=== PATIENT | female | born 1985 | race American Indian/Alaskan Native ===

== ENCOUNTER 2020-07-19 09:36 | Day surgery (SDC) | payer OTHER ==
[~2020-07-19 09:36] MED LIST: LACTATED RINGERS 1,000 ML IV SCH; MIDAZOLAM 2 MG/2 ML INJ IV NR
[2020-07-19] MEDS ORDERED: ceFAZolin/Water 2 GM/20 ML 2 GM/20 ML SYRINGE IV NR (10:00)
[2020-07-19] MEDS ORDERED: fentaNYL 100 MCG/2 ML INJ IV PRN (10:25)
[2020-07-19] MEDS ORDERED: ONDANSETRON 4 MG/2 ML INJ IV PRN (10:25)
[2020-07-19] MEDS ORDERED: HYDROcodone/ACETAMINOPHEN 5-325 MG TAB PO PRN (10:25)
--- NOTE | 2020-07-19 10:25 | Anesthesia Consultation ---
Anesthesia Consult and Med Hx Date of service: 07/19/20 - Airway Anesthetic Teeth Evaluation: Good ROM Head & Neck: Adequate Mental/Hyoid Distance: Adequate Mallampati Class: Class II Intubation Access Assessment: Probably Good - Pulmonary Exam CTA: Yes - Cardiac Exam Cardiac Exam: RRR - Pre-Operative Health Status ASA Pre-Surgery Classification: ASA2 Proposed Anesthetic Plan: General - Pulmonary Hx Smoking: No Hx Respiratory Symptoms: No Hx Sleep Apnea: No (GILMA PRE SCREEN NEGATIVE) - Cardiovascular System Hx Hypertension: No - Central Nervous System CVA: No Hx Back Pain: Yes - Endocrine Hx Renal Disease: No Hx Liver Disease: No Hx Non-Insulin Dependent Diabetes: Yes ("pre-DM", no meds) - Other Systems Hx Obesity: Yes (BMI 34) - Additional Comments Anesthesia Medical History Comments: Hx PONV. COVID+ 03/2020, did not require hospitalization, symptoms completely resolved.
--- NOTE | 2020-07-19 10:25 | Anesthesia Day of Surgery ---
Anesthesia Day of Surgery - Day of Surgery Patient Examined: Yes Patient H&P Reviewed: Yes Patient is NPO: Yes
[2020-07-19] MEDS ORDERED: SCOPOLAMINE TRANSDERMAL PATCH 72 HR TD SCH (10:47)
[2020-07-19] MEDS ORDERED: LIDOCAINE MPF (2%) 20 MG/1 ML VIAL 5 ML ONE (10:52)
[2020-07-19] MEDS ORDERED: dexAMETHasone 20 MG/5 ML VIAL ONE (10:52)
[2020-07-19] MEDS ORDERED: propofoL 200 MG/20 ML VIAL IV ONE (10:52)
[2020-07-19] MEDS ORDERED: fentaNYL 100 MCG/2 ML INJ ONE (10:55)
[2020-07-19] MEDS ORDERED: SCOPOLAMINE TRANSDERMAL PATCH 72 HR TD NR (11:00)
[2020-07-19] MEDS ORDERED: WATER FOR IRRIG STERILE 2000 ML IR ONE (12:17)
[2020-07-19] MEDS ORDERED: IOHEXOL 300 MG/ML 50ML IV ONE (12:20)
--- NOTE | 2020-07-19 13:16 | Operative Report ---
PREOPERATIVE DIAGNOSES: Left upper ureteral stone, previous sepsis. POSTOPERATIVE DIAGNOSES: Left upper ureteral stone, previous sepsis. PROCEDURES: Cystoscopy, left retrograde, left ureteroscopy, laser of large upper ureteral stone, nephroscopy and reinsertion double-J stent with a string. SURGEON: Dr. Hull. ANESTHESIA: General. FINDINGS: This is a woman who presented to the hospital with severe sepsis. Stent was placed. She had severe pain. She now presents for second stage ureteroscopy. DESCRIPTION OF PROCEDURE: The patient was brought to the operating room and placed on the operating table. Following induction of anesthesia, placed in lithotomy position, prepped and draped in usual sterile fashion. Cystourethroscopy showed a normal bladder. Two wires were coiled in the kidney and ureteroscopy revealed a stone without difficulty, but it was in the upper ureter. A 200 fiber was used and the stone was broken into so many pieces. One fragment went into the kidney. We followed it and broken in the middle to lower pole reanna into multiple pieces. The patient tolerated the procedure well. A 7-Turkmen coiled in the kidney and bladder, we left the string, brought to recovery in stable condition. JOB# [id number] ARMANDO/GABE
--- NOTE | 2020-07-19 13:19 | Fluoroscopy Report ---
FLUOROSCOPY RETROGRADE UROGRAPHY HISTORY: Left ureteral stone FINDINGS: Fluoroscopy was provided by radiology during retrograde urography by the urologist. Only im ages on the left side are presented. Computer Information Systems Instructor film demonstrates a left ureteral stent in good position w ith a stone in the mid left ureter near the level of L4. Subsequent images demonstrate left ureterosc opy and removal of the ureteral stone. The left ureteral stent was replaced and appears in good posit ion on the final image. Please correlate with the procedural report as needed. IMPRESSION: Left ureteral stone removal. Left ureteral stent replacement. Fluoroscopy time: 66 seconds Fluoroscopic images: 6 Signer Name: Miguel Garza Jr, MD Signed: 07/19/2020 1:15 PM Workstation Name: [id number]
--- NOTE | 2020-07-19 13:25 | Post Operative Note ---
Date of procedure: 07/19/20 Pre-op diagnosis: left upper ureteral stone Post-op diagnosis: same Findings: as above Procedure: cysto ureteroscopy laser Anesthesia: GETA Surgeon: MEY CARPENTER Estimated blood loss: none Pathology: none Condition: stable Disposition: PACU
--- NOTE | 2020-07-19 13:26 | Discharge Summary ---
Short Stay Discharge Plan Activity: other (no straining ) Weight Bearing Status: Full Weight Bearing Diet: regular, low fat Special Instructions: other (inc fluids ) Durable Medical Equipment Needed Upon Discharge: other (j stent do not pull string ) Follow up with: [facility] MD RADHA [Primary Care Provider] - 7 Days MEY CARPENTER MD [Staff Physician] - 7 Days
--- NOTE | 2020-07-19 14:34 | Post Anesthesia Evaluation ---
- Post Anesthesia Evaluation Patient Participated: Yes Airway Patent: Yes Stable Respiratory Function: Yes Nausea/Vomiting: No Temp > 96.8F: Yes Pain Manageable: Yes Adequeate Hydration: Yes Anesthesia Complications: No
[2020-07-19 14:53] VITALS: BP 111/75
== END 2020-07-19 09:37 | disposition home or self-care (01) ==
LOC: OR 09:36
PROVIDERS: ATTEND Urology
DX: N20.1 Calculus of ureter (principal); A41.9 Sepsis, unspecified organism; G43.909 Migraine, unspecified, not intractable, without status migrainosus; E66.9 Obesity, unspecified; E11.9 Type 2 diabetes mellitus without complications; F32.9 Major depressive disorder, single episode, unspecified; F41.9 Anxiety disorder, unspecified; Z98.890 Other specified postprocedural states; Z68.34 Body mass index [BMI] 34.0-34.9, adult
CPT/HCPCS: 52356; 74420; 81025; 82962; A4217; C1726; C1758; C1769; C2617; J1100; J2250; J2405; J2704; J3010; J7120; Q9967